=== PATIENT | male | born 1945 | race Caucasian/White ===

== ENCOUNTER → 2018-01-15 | Outpatient (CLI) | payer OTHER ==
[~2018-01-15] MED LIST: AMLODIPINE BESY10 MG PO; CYMBALTA30 MG PO; FLEXERIL PO; GLUCOPHAGE850 MG PO; PERCOCET 7.5-31 EACH PO; PRINIVIL10 MG PO; TRAMADOL 50 MG50 MG PO
--- NOTE | 2018-02-01 08:37 | PAINCON ---
[address] [address] PAIN MANAGEMENT CONSULTATION Name: LEONEL HICKS Room: [facility] FRANKI ApoloniaAnnita#: [id number] Admission: 01/15/18 Attend Phys: Edilma Hensley MD Discharge: Date of : 47 Report #: [id number] THIS REPORT FOR: //name// CC: Shaun Mccain DATE OF SERVICE: 01/15/2018 CHIEF COMPLAINT: Chronic pain. HISTORY OF PRESENT ILLNESS: The patient is a 72-year-old gentleman who has been referred to the pain clinic for evaluation. The patient states that he has been having pain for many years. He has pain in his buttocks, right hip area, right leg, right foot as well as pains in the upper shoulder and thoracic area. The patient states that he suffers from arthritis. He has agjg-[id number]-smda pain. Finds that Percocet medications have been helpful. He has been using about 6 tablets per day. Notes that without use of his medication, he has been much less active. He has some problems with arthritis, which he describes as severe in his low back and knees. Denies any new trauma. Denies any bowel or bladder dysfunction. The patient has had epidural steroid injections. Despite these treatments, his pain persist. He describes it as unrelenting. He also has found tramadol beneficial. The patient states that he has been referred to the pain clinic for evaluation to see whether any alternative pain options exist. Rates his pain as 7/10 at this juncture. ALLERGIES: ZESTRIL HAS BEEN PROBLEMATIC, STATINS. MEDICATIONS: Flexeril 10 mg 1 p.o. t.i.d., Cymbalta 30 mg b.i.d., gabapentin 300 mg t.i.d., lisinopril 10 mg, metformin 850 mg, Norvasc 10 mg, Percocet 7.5 mg up to 6 tablets per day. PAST MEDICAL HISTORY: 1. Diabetes. 2. Anemia. 3. Hypertension. 4. Emotional problems. 5. Joint disease/arthritis. 6. Hyperlipidemia. 7. Anxiety. PAST SURGICAL HISTORY: The patient denies any surgical history. SOCIAL HISTORY: He is retired. REVIEW OF SYSTEMS: Recent weight change, fatigue, weakness, hearing loss, [place] [address] PAIN MANAGEMENT CONSULTATION Name: LEONEL HICKS Room: [facility]#: [id number] Admission: 01/15/18 Attend Phys: Edilma Hensley MD Discharge: Date of : 47 Report #: [id number] of appetite. He awakens at night to urinate, sexual difficulties, joint pain, joint stiffness, weakness of muscles, pain and cramping, back pain, difficulty walking, numbness and tingling sensation, depression, nervousness. LABORATORY DATA: No laboratory values were available at the time of our interview. PAIN CLINIC ASSESSMENT: 1. History of osteoarthritis. The patient has [id number] pain involving his knees in a number of other joints. 2. Height 5 feet 7 inches, weight 170 pounds, BMI is 27. 3. Vital signs: Blood pressure 133/81, heart rate 99, respiratory rate 16, room air saturation 94%, temperature 98.6. 4. Pain score 7/10. 5. Fall history: The patient has not fallen in the last 3 months. 6. Blood thinner. The patient is not on a blood thinning medication. 7. History of hypertension. The patient is being treated for hypertension. 8. Opioid use greater than 6 weeks. The patient is receiving opioid medications from his current physician greater than 6 weeks. 9. Risk assessment tool. 10. Functional assessment tool. 11. Recreational drug use. The patient denies use of recreational drugs. 12. Tobacco: The patient does smoke 2-3 packs of cigarettes per day, has smoked for the last 40 years. 13. Alcohol: The patient denies use of alcoholic beverages. 14. Recreational drug use. The patient denies recreational drug use. 15. Functional assessment tool. 16. Risk assessment tool. PHYSICAL EXAMINATION: GENERAL: The patient is a 72-year-old gentleman. He is a white male, appears slightly older than his stated age. He is somewhat thin. Affect is somewhat nervous. Speech is fluent. HEENT: Normocephalic, atraumatic. Extraocular eye muscles intact. Sclerae nonicteric. Hearing is generally within normal limits. Mucous membranes are moist. NECK: Without JVD or adenopathy. LUNGS: Decreased lung sounds. EXTREMITIES: Upper extremity. The patient complains of pain and discomfort in the neck, shoulders, elbows and has pain and discomfort down into his right hand. Notes some loss of muscle in the left hand. The patient without significant scoliosis or lordosis noted. Lower extremity strength judged to be 4+/5 for the major muscle groups in the lower extremity. Drains in the upper extremities, 4/5 for the upper motor areas. The patient has pain and discomfort in his back. Complains of pain in his hip. [address] [address] PAIN MANAGEMENT CONSULTATION Name: LEONEL HICKS Room: [facility]#: [id number] Admission: 01/15/18 Attend Phys: Edilma Hensley MD Discharge: Date of : 47 Report #: [id number] IMPRESSION: 1. Anxiety. 2. Arthritis in a number of joints -- osteo. 3. Chronic pain. 4. Diabetes. 5. Dyslipidemia. 6. Hypertension. 7. Iron deficiency anemia. RECOMMENDATIONS: We discussed treatment options with the patient. He states that he has continued to have pain, which has been problematic over about the last 30 years. He finds that his medications are helpful. Does not find that they are able to significantly decrease his pain to the level he would like to achieve. He notes some limitation in his ability to engage in activities of daily living because of this chronic pain, which he describes as unrelenting. Has difficulty interacting with family members because of this chronic pain. Continues to use his walker for assistance. The patient states that he has undergone epidural steroid injections in the past, but his pain continues to be present. States that he is using oxycodone approximately 6 tablets per day. He is also found tramadol helpful. States that he has been sent to the pain clinic for evaluation as to whether other options were available. We discussed the treatment course with the patient as he and his family members are aware, opioids are hot topic in the media. At this juncture, the CDC has decreased that certain levels of opioid medications should be in place to limit the amount of narcotics the patient receive. We explained to the patient that the [facility] has a desire to have patients at approximately 50 morphine equivalents. Oxycodone rates as 1.5 x strength of morphine. His current use puts him at about 43 mg of oxycodone that would equate to about 68 mg of morphine. We explained to the patient that in order for him to be seen in our pain clinic, he would have to come down to about 30 mg of oxycodone per day. Given that he would have to come down to 30 mg being seen in our clinic, he elects to continue with the current amount of medication he is receiving at his pain clinic. Again, we have explained to the patient that at this juncture, there are no new medications available at this time. The patient states he will continue to follow up with his primary doctors/pain doctor and continue opioid medications from that source. We would like to thank you for letting us participate in his care. We hope he continues to improve. <ELECTRONICALLY SIGNED> By: Edilma Hensley MD 02/01/18 [id number]. Grayson Hensley MD /nt
== END ==
LOC: M.PC 09-11 10:00
DX: M16.11 Unilateral primary osteoarthritis, right hip (principal); G89.29 Other chronic pain; I10 Essential (primary) hypertension; E11.9 Type 2 diabetes mellitus without complications; E78.5 Hyperlipidemia, unspecified; F41.9 Anxiety disorder, unspecified; D50.9 Iron deficiency anemia, unspecified